=== PATIENT | female | born 1970 | race Caucasian/White ===

== ENCOUNTER 2022-11-08 05:05 | Emergency (ER) | payer OTHER ==
--- OUTSIDE RECORDS SUMMARY | 2022-11-08 05:09 | XMS REPORT | Continuity of Care Document ---
:1970 Author Organization [facility] t Address [address] [place] [address] Care Team Providers Name Role Phone Keyshawn LARSON, Lora Blanco Primary Care Physician Lora Mckeon MD Attending Clinician Payers Payer Name Policy Type Policy Number Effective Date Expiration Date S ource Problems Condition Condition Condition Status Onset Resolution Last Treating Co mments Source Name Details Category Date Date Treatment Clinician Date Attention Attention Disease Active Met hodi deficit deficit 02-06 disorder disorder 00:00: Hospit a 00 l Fear of Fear of Disease Active Methodi flying flying 02-06 00:00: Hospita 00 l Gastroesop Gastroesop Disease Active M ethodi hageal hageal 02-06 reflux reflux 00:00: Hospita disease disease 00 l Hypothyroi Hypothyroi Disease Active M ethodi dism dism 02-06 00:00: Hospita 00 l Insomnia- Insomnia- Disease Active Met hodi off off 02-06 medication medication 00:00: Ho spita s, normal s, normal 00 l TSH TSH Migraine Migraine Disease Active Metho di 02-06 00:00: Hospita 00 l Allergies, Adverse Reactions, Alerts Allergy Allergy Status Severity Reaction(s) Onset Inactive Treating Comm ents Source Name Type Date Date Clinician No Known Propensi Active Method i Drug ty to 02-06 Allergie adverse 00:00: Hospita s reaction 00 l s to drug Family History Family Member Diagnosis Comments Start Date Stop Date Source Natural mother Hypertension [facility] Social History Social Habit Start Date Stop Date Quantity Comments Source Tobacco use and 2021-12-19 2021-12-19 Smokeless tobacco Me [facility]odist exposure 00:00:00 00:00:00 non-user Hospital Alcohol intake 2021-12-19 2021-12-19 Current drinker Metho dist 00:00:00 00:00:00 of alcohol Hospital (finding) Alcohol Comment 2016-02-07 2016-02-07 social [facility] 00:00:00 00:00:00 Hospital Sex Ass[birth year] At [birth year] [facility] 00:00:00 00:00:00 Hospital Smoking Status Start Date Stop Date Source Never smoked tobacco [facility]spital Medications Ordered Filled Start Stop Current Ordering Indication Dosage Frequency Signature Comments Components Source Medication Medication Date Date Medication? Clinician (SIG) Name Name SUMAtriptan Yes [id number] TAKE Methodi (IMITREX) 10-17 DIRECTED, st 100 MG 00:00: MAY REPEAT Hospi ta tablet 00 IN 2 HOURS l IF UNRESOLVED . NOT TO EXCEED 2 TABLETS IN 24 HOURS dextroamphe 2022- Yes [id number] 20mg Q.5D Take 1 Methodi tamine-amph 10-17- tablet (20 s t etamine 00:00: 05:59 mg total) Hosp bran (AdderalL) 00 :00 by mouth 2 l 20 mg (two) tablet times a day for 30 days. Max Daily Amount: 40 mg SUMAtriptan 2022- No TAKE Me thodi (IMITREX) 04-02 DIRECTED, st 100 MG 00:00: 00:00 MAY REPEAT Hosp bran tablet 00 :00 IN 2 HOURS l IF UNRESOLVED . NOT TO EXCEED 2 TABLETS IN 24 HOURS dextroamphe 2022- No [id number] 20mg Q.5D Take 1 Methodi tamine-amph 02-18 tablet (20 s t etamine 00:00: 00:00 mg total) Hosp bran (AdderalL) 00 :00 by mouth 2 l 20 mg (two) tablet times a day for 30 days. Max Daily Amount: 40 mg dextroamphe 2021- No [id number] 20mg Q.5D Take 1 Methodi tamine-amph 01-17 - tablet (20 s t etamine 00:00: 00:00 mg total) Hosp bran (AdderalL) 00 :00 by mouth 2 l 20 mg (two) tablet times a day for 30 days. Max Daily Amount: 40 mg SUMAtriptan 2021- No TAKE Me thodi (IMITREX) 12-19 DIRECTED, st 100 MG 00:00: 00:00 MAY REPEAT Hosp bran tablet 00 :00 IN 2 HOURS l IF UNRESOLVED . NOT TO EXCEED 2 TABLETS IN 24 HOURS dextroamphe 2021- No [id number] 20mg Q.5D Take 1 Methodi tamine-amph -19 01- tablet (20 s t etamine 00:00: 00:00 mg total) Hosp bran (AdderalL) 00 :00 by mouth 2 l 20 mg (two) tablet times a day for 30 days. Max Daily Amount: 40 mg dextroamphe 2020-09- No [id number] 20mg Q.5D Take 1 Methodi tamine-amph 0-15 12-19 tablet (20 s t etamine 00:00: 00:00 mg total) Hosp bran (AdderalL) 00 :00 by mouth 2 l 20 mg (two) tablet times a day for 90 days. Max Daily Amount: 40 mg topiramate 2021- No [id number] 100mg Q.5D Take 1 [facility] (TOPAMAX) 04-[address] 100 MG 00:00: 00:00 (100 mg Hospita tablet 00 :00 total) by l mouth 2 (two) times a day. [place] 2021- [place] [id number] chronic Meth chas (ULTRAM) 50 04-10 pain. TAKE s t mg tablet 00:00: 00:00 1 TABLET Hos marjan 00 :00 BY MOUTH l EVERY 8 HOURS NEEDED FOR PAIN SUMAtriptan 2021- No TAKE Me thodi (IMITREX) 04-10 DIRECTED, st 100 MG 00:00: 00:00 MAY REPEAT Hosp bran tablet 00 :00 IN 2 HOURS l IF UNRESOLVED . NOT TO EXCEED 2 TABLETS IN 24 HOURS azelastine 2021- No INSTILL 1 M ethodi (OPTIVAR) 04-[address] 0.05 % 00:00: 00:00 BOTH EYES Hospi ta ophthalmic 00 :00 TWICE A l solution DAY fluticasone 2021- No [id number] USE 2 Methodi propionate 6-12-[address] (FLONASE) 00:00: 00:00 EACH Hospita 50 00 :00 NOSTRIL l mcg/actuati DAILY on nasal spray Immunizations Ordered Immunization Filled Immunization Date Status Commen ts Source Name Name MAYO LEAL PF 2019-10-28 Completed [facility] 00:00:00 Hospital Vital Signs Vital Name Observation Time Observation Value Comments Source Systolic blood 2021-12-19 14:07:00 120 mm[Hg] [facility] pressure Diastolic blood 2021-12-19 14:07:00 72 mm[Hg] [facility] pressure Heart rate 2021-12-19 14:07:00 71 /min [facility] Body temperature 2021-12-19 14:07:00 36.67 Elena [facility] Body height 2021-12-19 14:07:00 162.6 cm [facility] Body weight 2021-12-19 14:07:00 89.812 kg [facility] BMI 2021-12-19 14:07:00 33.99 kg/m2 [facility] Oxygen saturation in 2021-12-19 14:07:00 98 /min [facility] Arterial blood by Pulse oximetry Procedures Procedure Date / Time Performing Clinician Source Performed ESTRADIOL L[facility]EL [facility]12[facility]OL[facility] 2021-12-19 14:48:00 Lora Mckeon [facility] PANEL LIPID PANEL 2021-12-19 14:48:00 [facility] Lora [facility] HEMOGLOBIN A1C 2021-12-19 14:48:00 [facility] THYROID STIMULATING 2021-12-19 14:48[facility]00 [facility] H[facility]ONE Plan of Care Planned Activity Planned Date Details Comments Source Future Scheduled 2022-10-30 COVID-19 VACCINE (#1) [facility] Test 12:34:57 [code = COVID-19 VACCINE (#1)] Future Scheduled 2022-10-30 Hepatitis C screening [facility] Test 12:34:57 (procedure) [code = 317909668] Future Scheduled 2022-10-30 COLONOSCOPY SCREENING [facility] Test 12:34:57 [code = COLONOSCOPY SCREENING] Future Scheduled 2022-10-30 SHINGLES VACCINES (1 Met [facility] Test 12:34:57 of 2) [code = SHINGLES VACCINES (1 of 2)] Future Scheduled 2022-10-30 INFLUENZA VACCINE [facility] Test 12:34:57 [code = INFLUENZA VACCINE] Future Scheduled 2022-10-30 BREAST CANCER [facility] Test 12:34:57 SCREENING [code = BREAST CANCER SCREENING] Future Scheduled 2022-10-30 Screening for [facility] Test 12:34:57 malignant neoplasm of cervix (procedure) [code = 098649906] Encounters Start End Encounter Admission Attending Care Care Encounter Source Date/Time Date/Time Type Type Clinicians Facility Department ID 2022-10-17 2022-10-17 Telemedici Keyshawn, 1.2.840.1 [id number] Methodi 08:45:00 09:20:46 ne Lora Y. 21938.1.[address] 3.430.2.7 Hospit a .3.283017 l .8 2022-10-17 2022-10-17 Outpatient [facility] [id number] [address] [place] [address] 00:00:00 00:00:[address] 2022-04-02 2022-04-02 Refill Keyshawn, 1.2.840.1 [id number] Methodi 00:00:00 00:00:00 L[address] 3.430.2.7 Hospit a .3.626180 l .8 2022-02-15 2022-02-15 Refill Mckeon, 1.2.840.1 [id number] Methodi 00:00:00 00:00:00 L[address] Y[address] 3.430.2.7 Hospit a .3.439113 l .8 2022-01-17 2022-01-17 Refill Keyshawn 1.2.840.1 [id number] Methodi 00:00:00 00:00:00 Lora Morrow. [address]33.1.[address] 3.430.2.7 Hospit a .3.616459 l .8 2021-12-19 2021-12-19 Office Keyshawn, 1.2.840.1 [id number] Methodi 09:00:00 09:48:18 Visit Lora Morrow. [address]12.1.[address] 3.430.2.7 Hospit a .3.654288 l .8 2021-12-19 2021-12-19 Travel 1.2.840.1 1.2.590.147 [id number] Methodi 00:00:00 00:00:[address] 3.430.2.7 0.2.7.3.698 Ho spita .3.151461 084.8 l .8 2021-12-19 2021-12-19 Outpatient MCKEON, [facility] [id number] 00:00:00 00:00:[address] 2021-12-17 2021-12-17 Travel 1.2.840.1 1.2.620.277 [id number] Methodi 00:00:00 00:00:[address] 3.430.2.7 0.2.7.3.698 Ho spita .3.555711 084.8 l .8 2021-05-09 2021-05-09 [id number] 00:00:00 00:00:00 LORA [address] 2021-04-10 2021-04-10 Outpatient [facility] [id number] 00:00:00 00:00:[address] Results Test Description Test Time Test Comments Results Result Comments Source Comprehensive metabolic panel 2021-12-20 11:10:00 Test Item Value Reference Range Interpretation Comme nts Glucose (test code = 102 mg/dL 65-99 H 2345-7) BUN (test code = 3094-0) 21 mg/dL 6-24 Creatinine (test code = 0.92 mg/dL 0.57-1.00 2160-0) eGFR (test code = 8257) 75 mL/min/1.73 >=59 BUN/creatinine ratio (test 23 06-21 code = 3097-3) Sodium (test code = 139 mmol/L 871-949 8613-2) Potassium (test code = 4.3 mmol/L 3.5-5.2 2823-3) Chloride (test code = 100 mmol/L 96-106 2075-0) CO2 (test code = 2027-9) 22 mmol/L 20-29 Calcium (test code = 10.9 mg/dL 8.7-10.2 H 92645-0) Protein (test code = 7.5 g/dL 6.0-8.5 2885-2) Albumin, S (test code = 4.7 g/dL 3.8-4.9 1751-7) Globulin, total (test code 2.8 g/dL 1.5-4.5 = 71413-0) Albumin/globulin ratio 1.7 1.2-2.2 (test code = 1759-0) Total bilirubin (test code 0.5 mg/dL 0.0-1.2 = 1974-2) Alkaline phosphatase (test 66 See_Comment [Automated message] code = 6768-6) The system DashThis generated this result transmitted ref erence range: 44 - 121 IU/L. The reference r bridget was not used to int erpret this result as normal/abnormal . AST (test code = 1920-8) 20 See_Comment [A utomated message] The system Illumitex generated this result transmitted ref erence range: 0 - 40 I U/L. The reference range was not used to interpr et this result as normal/abnormal . ALT (test code = 1742-6) 19 See_Comment [A utomated message] The system Illumite[employer] generated this result transmitted ref erence range: 0 - 32 I U/L. The reference range was not used to interpr et this result as normal/abnormal . CATHY (test code = CATHY) Performed at: [facility] [id number] Director: Salty Lamb MD, Phone: [phone] Lab Interpretation (test Abnormal code = 25446-1) [facility] [id number] 11:10:00 Test Item Value Reference Range Interpretation Comments Cholesterol (test code = 216 mg/dL 100-199 H 2093-3) Triglycerides (test code 142 mg/dL 0-149 = 2571-8) HDL cholesterol (test 74 mg/dL >=39 code = 2085-9) VLDL cholesterol david 25 mg/dL 5-40 (test code = 86290-6) LDL Chol Calc (NIH) (test 117 mg/dL 0-99 H code = 74869-1) Non-HDL cholesterol (test 142 mg/dL 0-129 H code = 78677-1) CATHY (test code = CATHY) Performed at: - [address] [id number] Director: Salty Lamb MD, Phone: [phone] Lab Interpretation (test Abnormal code = 84362-4) [facility] [id number] 11:10:00 Test Item Value Reference Range Interpretation Comments Hemoglobin A1C 5.5 % 4.8-5.6 Prediabetes: (test code = 5.7 - 6.4 4548-4) Diabetes: >6.4 Glycemic contro l for adults with diabetes: <7.0 CATHY (test code = Performed at: CATHY) [address] [id number] Director: Salty Lamb MD, Phone: [phone] [facility] Worth[facility] stimulating [id number] 11:10:00 Test Item Value Reference Range Interpretation Comments TSH (test code 2.240 See_Comment [Automated m essage] = 72504-0) The system Illumite[employer] generated this result transmit lurdes reference range : 0.450 - 4.500 uIU/mL. The reference range was not used to interpret this result as normal/abnormal . CATHY (test code Performed at: - = CATHY) [address] [id number] Director: Salty Lamb MD, Phone: [phone] [facility] Worth[facility] [id number] 11:10:00 Test Item Value Reference Range Interpretation Comments Estradiol (test 27.5 pg/mL Adult Femal e: code = 2243-4) Follicular ph ase 12.5 - 166.0 Ovulati on phase 85.8 - 49 8.0 Luteal phase 43 .8 - 211.0 Postmenop ausal <6.0 - 54.7 Pre gnancy 1st trimester 2 15.0 - >4300.0Roche EC MARLIN methodology CATHY (test code = Performed at: 01 CATHY) - [facility] [address] [id number] Director: Salty Lamb MD, Phone: [phone] [facility]
[2022-11-08] MEDS ORDERED: ONDANSETRON 4 MG/2 ML VIAL ONE ×2 (05:31→06:54)
[2022-11-08] MEDS ORDERED: MORPHINE 4 MG/ML SYR ONE (05:31)
[2022-11-08 05:44] LABS: Absolute Lymphocytes (CBC) 3.7 K/uL (0.7-4.9); Hematocrit 47.1 % (36.0-45.0); Lymphocytes % 26.1 % (15.3-44.8); MCV 86.7 fL (80-100); RBC Red Blood Cell Count 5.43 M/uL (3.86-4.86)
[2022-11-08 05:45] LABS: Protime INR 0.9
[2022-11-08 05:52] LABS: SARS-CoV-2 Antigen Rapid Res Negative (Negative)
[2022-11-08 05:59] LABS: Albumin 4.3 g/dL (3.4-5.0); Bilirubin Direct 0.2 mg/dL (0-0.2); Bilirubin Total 0.9 mg/dL (0.2-1.0); Potassium 3.1 mmol/L (3.5-5.1); Protein, Total 8.7 g/dL (6.4-8.2); Troponin High Sensitivity 49.5 pg/mL (<58.9)
[2022-11-08] MEDS ORDERED: FENTANYL CITR 100 MCG/2 ML ONE (06:04)
[2022-11-08] MEDS ORDERED: LABETALOL 20 MG/4ML SYRINGE IV ONE (06:20)
--- NOTE | 2022-11-08 06:44 | ER ---
Nurse's Notes [facility] Name: Danitza Mcmanus Age: 52 yrs Sex: Female : 1970 Arrival Date: 11/08/2022 Time: 05:07 Bed 4 Private MD: Diagnosis: ST elevation (STEMI) myocardial infarction of unspecified site;Chest pain, unspecified;Essential (primary) hypertension Presentation: 11/08 05:12 Chief complaint: Patient states: chest pain x 2 hours Diaphoretic radiates to left kl shoulder left neck. Coronavirus screen: Vaccine status: Patient reports being unvaccinated. Ebola Screen: Patient negative for fever greater than or equal to 101.5 degrees Fahrenheit, and additional compatible Ebola Virus Disease symptoms. Initial Sepsis Screen: Does the patient meet any 2 criteria? No. Patient's initial sepsis screen is negative. Does the patient have a suspected source of infection? No. Patient's initial sepsis screen is negative. Risk Assessment: Do you want to hurt yourself or someone else? Patient reports no desire to harm self or others. Onset of symptoms was November 08, 2022 at 03:00. 05:12 Method Of Arrival: Ambulatory 05:12 Acuity: KAYE 2 Triage Assessment: 05:17 General: Appears distressed, uncomfortable, well groomed, well developed, Behavior is kl anxious. Pain: Complains of pain in anterior aspect of left upper chest Pain radiates to left supraclavicular area and left clavicle. STOCK COUNTER: 06:11 LMP 11/08/2022 Historical: - Allergies: 05:16 No Known Allergies; - Home Meds: 05:16 Adderall XR Oral [Active]; kl - PMHx: 05:16 PE; - PSHx: 05:16 None; - Immunization history:: Adult Immunizations not up to date. - Social history:: Smoking status: Patient denies any tobacco usage or history of. - Family history:: not pertinent. - Hospitalizations: : No recent hospitalization is reported. Screenin:35 [facility] ED Fall Risk Assessment (Adult) History of falling in the last 3 months, kl including since admission No falls in past 3 months (0 pts) Confusion or Disorientation No (0 pts) Intoxicated or Sedated No (0 pts) Impaired Gait No (0 pts) Mobility Assist Device Used No (0 pt) Altered Elimination No (0 pt) Score/Fall Risk Level 0 - 2 = Low Risk Oriented to surroundings, Maintained a safe environment. Abuse screen: Denies threats or abuse. Nutritional screening: No deficits noted. Tuberculosis screening: No symptoms or risk factors identified. Assessment: 05:31 Tenecteplase (TNKase) screening:. General: Appears distressed, uncomfortable, Behavior kl is cooperative, anxious. Pain: Pain began 2 hours ago. Neuro: No deficits noted. Cardiovascular: Rhythm is sinus rhythm with multifocal PVCs. Cardiovascular: Reports chest pain, diaphoresis, shortness of breath. Respiratory: Reports shortness of breath. GI: No deficits noted. No signs and/or symptoms were reported involving the gastrointestinal system. : No deficits noted. No signs and/or symptoms were reported regarding the genitourinary system. 06:37 Reassessment: Pt remains in bed, continues to report chest pain that is better. jb4 Respirations are even and unlabored at this time. Family remains at the bedside. Vital Signs: 05:12 BP 178 / 118; Pulse 76; Resp 14; Pulse Ox 100% ; Weight 86.18 kg (M); Height 5 ft. 4 kl in. (162.56 cm); Pain 9/10; 05:33 BP 171 / 122; Pulse 82; Resp 20; Pulse Ox 100% on R/A; kl 06:14 BP 167 / 120; Pulse 82; kl 06:38 BP 180 / 132; Pulse 85; Resp 20; Pulse Ox 100% on R/A; jb4 06:52 BP 145 / 100; rn 05:12 Body Mass Index 32.61 (86.18 kg, 162.56 cm) ED Course: 05:07 Patient arrived in ED. jj6 05:07 Sincere Hoyt MD is Attending Physician. rn 05:16 Triage completed. 05:28 Initial lab(s) drawn, by wy, sent to lab. Inserted saline lock: 18 gauge in left jb4 antecubital area, using aseptic technique. Blood collected. 05:30 Inserted saline lock: 20 gauge in right antecubital area, using aseptic technique. jb4 ,using aseptic technique. started by Rafael AKINS tech. 05:39 XRAY Chest (1 view) In Process Unspecified. EDMS 05:41 Demar Wiseman, RN is Primary Nurse. jb4 05:42 Basic Metabolic Panel Sent. jb4 05:42 CBC with Diff Sent. jb4 05:42 LFT's Sent. jb4 05:42 NT PRO-BNP Sent. jb4 05:42 PT-INR Sent. jb4 05:42 Troponin HS Sent. jb4 06:00 CT Aorta for Dissection In Process Unspecified. EDMS 06:08 initiated a transfer with Madelaine from the [facility]. eb 06:[address] Rose the oil process [employer] avion[employer] installer for [facility]. eb 06:30 administrative approval given by Linda Yeh Rn/ patient has been accepted to [facility] 8CA bed 1/ Dr. Ezra Rose has accepted the patient transfer/ report to be called to [phone]. 07:05 No provider procedures requiring assistance completed. Patient transferred, IV remains jb4 in place. Patient maintains SpO2 saturation greater than 95% on room air. 07:05 Arm band placed on right wrist. jb4 Administered Medications: 05:31 Drug: morphine 4 mg Route: IVP; Infused Over: 4 mins; Site: left antecubital; kl 05:31 Drug: Zofran (Ondansetron) 4 mg Route: IVP; Site: left antecubital; kl 06:10 Drug: fentaNYL (PF) 50 mcg Route: IVP; Site: left antecubital; jb4 06:17 Not Given (Duplicate Order): Heparin (ME-Bolus No thrombolytic) - HEParin 60 units/kg rn IVP once; Max 5000 units 06:17 Not Given (Duplicate Order): Heparin (ME Drip) 12 units/kg/hr - (HEParin 23038 units, rn D5W 500 ml) IV at calculated rate Per protocol; Max initial rate 1000 units/hr 06:17 Not Given (Duplicate Order): PlaVIX (clopidogrel) 300 mg PO once rn 06:20 Drug: Labetalol 5 mg Route: IV; Rate: calculated rate; Site: left antecubital; jb4 06:37 Drug: Labetalol 5 mg Route: IV; Rate: calculated rate; Site: left antecubital; jb4 06:45 Drug: Nitroglycerin 0.4 mg {Note: bp 182/120.} Route: Sublingual; kl 06:48 Drug: Nitro-Bid (nitroglycerin) Ointment 2 % 1 inches Route: Transdermal; Site: anterior chest wall; 06:52 Drug: Aspirin Chewable Tablet 324 mg Route: PO; jb4 06:53 Drug: Tenecteplase 45 mg {Co-Signature: kb3 (Flora Chamorro RN).} Route: IV; Rate: kl calculated rate; Site: left antecubital; 06:59 Drug: Phenergan (promethazine) 12.5 mg Route: IVP; Site: left antecubital; jb4 06:59 Drug: PlaVIX (clopidogrel) 300 mg Route: PO; jb4 Outcome: 06:43 ER care complete, transfer ordered by . vanita 07:05 Transferred to [facility], Transfer form completed. X-rays sent w/ patient. jb4 07:05 Condition: stable 07:05 Discharge instructions given to patient, family, Instructed on the need for transfer, Demonstrated understanding of instructions. 07:05 Patient left the ED. jb4 Signatures: Dispatcher [employer] EDMS Danii Tam RN Sincere Vargas MD MD rn Bryson, James, RN RN jb4 Radha Norris Jennifer jj6 Flora Chamorro RN kb3
--- NOTE | 2022-11-08 06:44 | EDPHYS ---
Physician Documentation [facility] Name: Danitza Mcmanus Age: 52 yrs Sex: Female : 1970 Arrival Date: 11/08/2022 Time: 05:07 Bed 4 Private MD: ED Physician Sincere Hoyt HPI: 11/08 05:18 This 52 yrs old Female presents to ER via Ambulatory with complaints of Chest Pain, rn Chest Tightness, Jaw Pain, Arm Pain. 05:18 The patient or guardian reports chest pain that is located primarily in the substernal rn area. Onset: 1.5 hour(s) ago. The pain radiates to the left arm, the left shoulder, Associated signs and symptoms: Pertinent positives: diaphoresis, Pertinent negatives: abdominal pain. 05:26 The chest pain is described as a heaviness, a pressure. 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 Modifying factors: The symptoms are alleviated by nothing. the symptoms are aggravated by nothing. Severity of pain: At its worst the pain was moderate in the emergency department the pain is unchanged. The patient has experienced a previous episode, approximately 3 days ago. The patient has not recently seen a physician. Pt reports 1.5 hours of chest pressure and pain, radiates to left shoulder/neck and shoulder blades. Hx of only HTN. NO trauma. No cough or sob. No abd pain. NO famhx of cardiac problems at her age. Has had a PE before but denies respiratory symptoms and states this feels completely different from her PE. . 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 - Social history:: Smoking status: Patient denies any tobacco usage or history of. - Family history:: not pertinent. - Hospitalizations: : No recent hospitalization is reported. ROS: 05:26 Constitutional: + diaphoresis Eyes: Negative for injury, pain, redness, and discharge, rn Neck: Negative for injury, pain, and swelling, Cardiovascular: Negative for palpitations, and edema, Respiratory: Negative for shortness of breath, cough, wheezing, and pleuritic chest pain, Abdomen/GI: + nausea, neg for abd pain MS/Extremity: Negative for injury and deformity, Skin: Negative for injury, rash, and discoloration, Neuro: Negative for headache, weakness, numbness, tingling, and seizure. Exam: 05:26 Constitutional: This is a well developed, well nourished patient who is awake, alert, rn appears anxious and in pain Head/Face: Normocephalic, atraumatic. Neck: no JVD Cardiovascular: Regular rate, irregular rhythm. No pulse deficits. Respiratory: No increased work of breathing, no retractions or nasal flaring. Abdomen/GI: soft, non-tender Skin: Warm, dry MS/ Extremity: Pulses equal, no cyanosis. Neuro: Awake and alert, GCS 15, oriented to person, place, time, and situation. Cranial nerves II-XII grossly intact. Motor strength 5/5 in all extremities. Sensory grossly intact. 06:41 ECG was reviewed by the Attending Physician. rn Vital Signs: 05:12 BP 178 / 118; Pulse 76; Resp 14; Pulse Ox 100% ; Weight 86.18 kg (M); Height 5 ft. 4 kl in. (162.56 cm); Pain 9/10; 05:33 BP 171 / 122; Pulse 82; Resp 20; Pulse Ox 100% on R/A; kl 06:14 BP 167 / 120; Pulse 82; kl 06:38 BP 180 / 132; Pulse 85; Resp 20; Pulse Ox 100% on R/A; jb4 06:52 BP 145 / 100; rn 05:12 Body Mass Index 32.61 (86.18 kg, 162.56 cm) MDM: 05:07 Patient medically screened. rn 05:31 ED course: ECGs show concern for ST elevation, but not really in contiguous leads, rn extremely high blood pressure of 178/118, will have to rule out aortic dissection with sudden onset of pain that radiates to back in setting of high BP. If CT aorta neg, will treat as acute OR with anticoagulation and transfer for cath. Explained all of this to patient and she agrees with care. . 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 Transfer initiated. Still do not have official read on CT aorta, but no obvious dissection per my read. . Independent interpretation of the following test(s) in the Emergency Department CT Scan: My interpretation is CT aorta without obvious dissection. 06:15 Differential diagnosis: acute myocardial infarction, acute pericarditis, anxiety, rn coronary artery disease costochondritis, pleurisy, pneumothorax, pulmonary embolus, stable angina, thoracic aortic disection, unstable angina. HEART Score: History: Highly Suspicious (2), ECG: Significant ST-deviation (2), Age: > 45 and < 65 years (1), Risk Factors: 1 or 2 risk factors (1), Troponin: < or = 1 x Normal Limit (0), Total Score = 6. Management of patient was discussed with the following: Keeler Polygraph Operator: Discussed case with Dr. Rose at [facility], agrees with waiting on Aorta scan to rule out dissection, then recommends TPA/TNK. . 06:36 ED course: CT aorta neg. Given labetalol for BP control as too high for TNKase at this rn time. . 06:41 The patient was given aspirin in the Emergency Department. Data reviewed: vital signs, rn nurses notes, lab test result(s), EKG, radiologic studies, CT scan, plain films, and as a result, I will admit patient. Consideration of Admission/Observation Escalation of care including admission/observation considered. I considered the following discharge prescriptions or medication management in the emergency department Medications were administered in the Emergency Department. See MAR Aspirin given, heparin and TNK considered pending BP control. . Counseling: I had a detailed discussion with the patient and/or guardian regarding: the historical points, exam findings, and any diagnostic results supporting the discharge/admit diagnosis, lab results, radiology results, the need to transfer to another facility, for higher level of care, [facility] does not immediately have the required specialist. Response to treatment: the patient's symptoms have mildly improved after treatment, and as a result, I will admit patient. 06:57 ED course: Blood pressure now with 2 diastolic readings < 110, TNKase ordered and rn given. . 11/08 05:14 Order name: Basic Metabolic Panel; Complete Time: 06:02 rn 11/08 05:14 Order name: CBC with Diff; Complete Time: 05:57 rn 11/08 05:14 Order name: LFT's; Complete Time: 06:02 rn 11/08 05:14 Order name: NT PRO-BNP; Complete Time: 06:02 rn 11/08 05:14 Order name: PT-INR; Complete Time: 05:57 rn 11/08 05:14 Order name: Troponin HS; Complete Time: 06:02 rn 11/08 05:14 Order name: XRAY Chest (1 view) rn 11/08 05:25 Order name: CT Aorta for Dissection rn 11/08 05:31 Order name: SARS RAPID; Complete Time: 05:57 rn 11/08 06:10 Order name: CREATININE WHOLE BLOOD; Complete Time: 06:10 EDMS 11/08 05:14 Order name: EKG; Complete Time: 05:15 rn 11/08 05:14 Order name: Cardiac monitoring; Complete Time: 05:37 rn 11/08 05:14 Order name: EKG - Nurse/Tech; Complete Time: 05:37 rn 11/08 05:14 Order name: IV Saline Lock; Complete Time: 05:37 rn 11/08 05:14 Order name: Labs collected and sent; Complete Time: 05:37 rn 11/08 05:14 Order name: O2 Per Protocol; Complete Time: 05:42 rn 11/08 05:14 Order name: O2 Sat Monitoring; Complete Time: 05:42 rn EC:41 Rate is 81 beats/min. Rhythm is regular. QRS [place] is Normal. [place] interval is normal. QRS rn interval is normal. QT interval is normal. No Q waves. T waves are Normal. ST Segment is elevated in leads V1, V2, V3, 1-2mm. Clinical impression: Acute OR. Interpreted by me. Reviewed by me. Administered Medications: 05:31 Drug: morphine 4 mg Route: IVP; Infused Over: 4 mins; Site: left antecubital; kl 05:31 Drug: Zofran (Ondansetron) 4 mg Route: IVP; Site: left antecubital; kl 06:10 Drug: fentaNYL (PF) 50 mcg Route: IVP; Site: left antecubital; jb4 06:17 Not Given (Duplicate Order): Heparin (OR-Bolus No thrombolytic) - HEParin 60 units/kg rn IVP once; Max 5000 units 06:17 Not Given (Duplicate Order): Heparin (OR Drip) 12 units/kg/hr - (HEParin 05630 units, rn D5W 500 ml) IV at calculated rate Per protocol; Max initial rate 1000 units/hr 06:17 Not Given (Duplicate Order): PlaVIX (clopidogrel) 300 mg PO once rn 06:20 Drug: Labetalol 5 mg Route: IV; Rate: calculated rate; Site: left antecubital; jb4 06:37 Drug: Labetalol 5 mg Route: IV; Rate: calculated rate; Site: left antecubital; jb4 06:45 Drug: Nitroglycerin 0.4 mg {Note: bp 182/120.} Route: Sublingual; 06:48 Drug: Nitro-Bid (nitroglycerin) Ointment 2 % 1 inches Route: Transdermal; Site: anterior chest wall; 06:52 Drug: Aspirin Chewable Tablet 324 mg Route: PO; jb4 06:53 Drug: Tenecteplase 45 mg {Co-Signature: kb3 (Flroa Chamorro RN).} Route: IV; Rate: kl calculated rate; Site: left antecubital; 06:59 Drug: Phenergan (promethazine) 12.5 mg Route: IVP; Site: left antecubital; jb4 06:59 Drug: PlaVIX (clopidogrel) 300 mg Route: PO; jb4 Disposition: 06:41 Critical Care:. rn Disposition Summary: 11/08/22 06:43 Transfer Ordered Transfer Location: [facility] rn Reason: Higher level of care rn Condition: Stable rn Problem: new rn Symptoms: have improved rn Accepting Physician: Dr. Rose(11/08/22 07:05) jb4 Diagnosis - ST elevation (STEMI) myocardial infarction of unspecified site rn - Chest pain, unspecified rn - Essential (primary) hypertension chief of internal medicine Instructions: - Discharge Summary Sheet jb4 Forms: - Medication Reconciliation Form rn - SBAR form jb4 Critical care time excluding procedures: 06:41 Critical care time: Bedside Care: 35 minutes, Consultation: 5 minutes. Total time: 40 rn minutes Signatures: Dispatcher [employer] Danii Diane RN RN kl Nieto, Roman, MD MD rn Bryson, James, RN RN jb4 Flora Chamorro RN kb3 Corrections: (The following items were deleted from the chart) 05:29 05:15 Chest For PE Angio+CT.RAD.BRZ ordered. EDMS EDMS 07:05 06:43 Dr. Rose rn jb4
[2022-11-08] MEDS ORDERED: NITROGLYCERIN 0.4 MG/TAB SL ONE (06:45)
[2022-11-08] MEDS ORDERED: NITROGLYCERIN 1 GM PKT TD ONE (06:50)
[2022-11-08] MEDS ORDERED: TENECTEPLASE 50 MG/10 ML VIAL IV ONE (06:52)
[2022-11-08] MEDS ORDERED: HEPARIN 5000 UNIT/ML 1 ML VIAL ONE (06:52)
[2022-11-08] MEDS ORDERED: HEPARIN/D5W 25,000 UNIT/500 ML BAG IV ONE (06:52)
[2022-11-08] MEDS ORDERED: ASPIRIN 81 MG CHEWABLE TABLET ONE (06:53)
[2022-11-08] MEDS ORDERED: PROMETHAZINE INJ 25 MG/ML AMP ONE (06:56)
[2022-11-08] MEDS ORDERED: CLOPIDOGREL 75 MG TABLET ONE (06:57)
[2022-11-08 07:39] VITALS: O2SAT 100
[2022-11-08 07:43] VITALS: BP 145/100
--- NOTE | 2022-11-08 10:54 | RAD REPORT ---
EXAM DESCRIPTION: CT - Angio Aorta For Dissection - 11/08/2022 7:11 am CLINICAL HISTORY: The patient is 52 years old and is Female; chest pain, HTN, hx of PE TECHNIQUE: Axial computed tomographic angiography images of the chest, abdomen and pelvis with intra venous contrast. Sagittal and coronal reformatted images were created and reviewed. This CT exam was performed using one or more of the following dose reduction techniques: automated exposure cont rol, adjustment of the mA and/or kV according to patient size, and/or use of iterative reconstruction technique. MIP reconstructed images were created and reviewed. COMPARISON: No relevant prior studies available. FINDINGS: VASCULATURE: Aorta: No thoracic or aortic dissection or aneurysm. Pulmonary arteries: Unremarkable as visualized, study protocol NOT for PE. No central pulmonar y embolism is identified. Great vessels of aortic arch: No acute findings. No dissection. No arterial occlusion or sig nificant stenosis. Celiac trunk and mesenteric arteries: No acute findings. No occlusion or significant stenosis. Renal arteries: No acute findings. No occlusion or significant stenosis. Iliac arteries: No acute findings. No occlusion or significant stenosis. CHEST: Lungs: No pulmonary consolidation or groundglass opacities to suggest pneumonia. Pleural space: No pleural effusion or pneumothorax. Heart: Unremarkable. No cardiomegaly. No significant pericardial effusion. ABDOMEN: Liver: Fatty liver. Gallbladder and bile ducts: Unremarkable. No calcified stones. No ductal dilation. Pancreas: Unremarkable. No ductal dilation. No mass. Spleen: Unremarkable. No splenomegaly. Adrenals: Unremarkable. No mass. Kidneys and ureters: Unremarkable. No hydronephrosis. No solid mass. Stomach and bowel: No bowel dilatation or obstruction. No bowel wall thickening. PELVIS: Appendix: The visualized appendix is normal. No pericecal inflammation to suggest acute appendic itis. Bladder: Unremarkable. No mass. Reproductive: 1.8 cm left ovarian simple cyst. Uterus and right ovary are unremarkable. CHEST, ABDOMEN and PELVIS: Intraperitoneal space: Unremarkable. No significant fluid collection. No free air. Bones/joints: Bilateral L5 spondylolysis. Mild thoracic scoliosis with concavity to the left. No acute fracture. No dislocation. Soft tissues: Unremarkable. Lymph nodes: Unremarkable. No pathologically enlarged lymph nodes. IMPRESSION: 1. No thoracic or aortic dissection or aneurysm. 2. Fatty liver. 3. 1.8 cm left ovarian simple-appearing cyst. No follow-up imaging is recommended. Reference: JACR 2019;17(2):248-254 Electronically signed by: Rossy Mcclellan MD 11/08/2022 6:29 AM NURSE PRACTITIONER PHYSICIAN ASSISTANT Due to temporary technical issues with the PACS/Fluency reporting system, reports are being signed by the in house radiologists without review as a courtesy to insure prompt reporting. The interpreting radiologist is fully responsible for the content of the report.
--- NOTE | 2022-11-08 11:14 | RAD REPORT ---
EXAM DESCRIPTION: RAD - Chest Single View - 11/08/2022 5:37 am CLINICAL HISTORY: The patient is 52 years old and is Female; CHEST PAIN TECHNIQUE: Frontal view of the chest. COMPARISON: No relevant prior studies available. FINDINGS: Lungs: Hazy opacification of the left lung base. Prominent interstitial markings which may indicate mild interstitial edema. Pleural space: Unremarkable. No pneumothorax. Heart: Unremarkable. Mediastinum: Unremarkable. Bones/joints: Unremarkable. IMPRESSION: 1. Hazy opacification of the left lung base. 2. Prominent interstitial markings which may indicate mild interstitial edema. Electronically signed by: Rafael June MD 11/08/2022 5:45 AM [employer] CLINICAL HISTORY: The patient is 52 years old and is Female; CHEST PAIN TECHNIQUE: Frontal view of the chest. COMPARISON: No relevant prior studies available. FINDINGS: Lungs: Hazy opacification of the left lung base. Prominent interstitial markings which may indicate mild interstitial edema. Pleural space: Unremarkable. No pneumothorax. Heart: Unremarkable. Mediastinum: Unremarkable. Bones/joints: Unremarkable. IMPRESSION: 1. Hazy opacification of the left lung base. 2. Prominent interstitial markings which may indicate mild interstitial edema. Electronically signed by: Rafael June MD 11/08/2022 5:45 AM [employer] Due to temporary technical issues with the PACS/Fluency reporting system, reports are being signed by the in house radiologists without review as a courtesy to insure prompt reporting. The interpreting radiologist is fully responsible for the content of the report.
== END 2022-11-08 07:05 | disposition short-term general hospital (02) ==
LOC: ER 05:05
DX: I21.3 ST elevation (STEMI) myocardial infarction of unspecified site (principal); I10 Essential (primary) hypertension; Z20.822 Contact with and (suspected) exposure to COVID-19
CPT/HCPCS: 92977; 85025; 80048; 36415; 85610; 82565; 80076; 84484; 83880; 71275; 74175; 71045; 96375; 96374; 99285; 87811; Q9967; J2550; J3101; J3010; J1644; J2405 ×2; 93005